=== PATIENT | female | born 1955 | race Caucasian/White ===

== ENCOUNTER 2019-09-16 23:11 | Emergency (ER) | payer BC, MEDICARE ==
[~2019-09-16] VITALS: Ht 165.1 cm; Wt 59.1 kg
[2019-09-17 00:40] VITALS: BP 111/65
== END 2019-09-17 00:56 | disposition home or self-care (01) ==
LOC: ER 23:13
DX: R55 Syncope and collapse (principal); R11.0 Nausea; R42 Dizziness and giddiness; I95.9 Hypotension, unspecified; R00.1 Bradycardia, unspecified; Z88.2 Allergy status to sulfonamides
CPT/HCPCS: 93005; 99283